=== PATIENT | female | born 2000 | race Caucasian/White ===

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

== ENCOUNTER 2018-09-26 22:00 | Emergency (ER) | payer OTHER ==
[~2018-09-26] VITALS: Ht 160 cm; Wt 76.2 kg
[~2018-09-26 22:00] MED LIST: CIPRO500 MG PO; CRYSELLE-28 TA1 EACH; URIN D.S. TABL1 EACH PO
[2018-09-27] MEDS ORDERED: VISTARIL50 MG PO (00:49)
== END 2018-09-27 01:30 | disposition home or self-care (01) ==
LOC: ER 22:00
DX: R11.0 Nausea (principal); R51 Headache; F41.0 Panic disorder [episodic paroxysmal anxiety]; F43.0 Acute stress reaction